=== PATIENT | female | born 2000 | race American Indian/Alaskan Native ===

== ENCOUNTER 2018-02-15 13:04 | Inpatient (IN) | payer OTHER ==
[2018-02-15 13:54] LABS: Basophils % (Auto) 0.4 % (0.0-1.8); Eosinophils % (Auto) 0.7 % (0.0-4.3); Hematocrit 39.7 % (30.3-42.9); Hemoglobin 13.2 gm/dl (10.1-14.3); Lymphocytes # (Auto) 1.1 K/mm3 (1.2-5.4); Lymphocytes % (Auto) 24.9 % (13.4-35.0); Mean Corpuscular HGB Conc 33 % (30-34); Mean Corpuscular Hemoglobin 30 pg (28-32); Mean Corpuscular Volume 91 fl (79-97); Monocytes # (Auto) 0.4 K/mm3 (0.0-0.8); Monocytes % (Auto) 8.4 % (0.0-7.3); Platelet Count 217 K/mm3 (140-440); Red Blood Count 4.37 M/mm3 (3.65-5.03); Red Cell Distribution Width 12.1 % (13.2-15.2)
[2018-02-15 14:09] LABS: INR 1.07 (0.87-1.13)
[2018-02-15 14:10] LABS: Partial Thromboplastin Time 27.2 Sec. (24.2-36.6); Thrombin Time 15.4 Sec. (15.1-19.6)
[2018-02-15 14:19] LABS: BUN/Creatinine Ratio 20; Blood Urea Nitrogen 14 mg/dL (7-17); Calcium 9.7 mg/dL (8.4-10.2); Hemolysis Index 40
--- NOTE | 2018-02-15 15:10 | Cat Scan Report ---
CT HEAD WITHOUT CONTRAST: HISTORY: Syncope, bilateral weakness left greater than right. TECHNIQUE: Sequential 2.5mm CT images. COMPARISON: none. FINDINGS: Cerebral Parenchyma: Within normal limits. Cerebellum: Within normal limits. Brainstem: Within normal limits. Ventricles: Normal. Sella: Normal. Extra-axial spaces: Normal. Basal Cisterns: Normal. Intracranial Hemorrhage: None. Midline Shift: None. Calvarium: Normal. Sinuses: Normal. Mastoid Air Cells: Normal. Visualized Orbits: Normal. IMPRESSION: Cranial CT scan within normal limits.
[2018-02-15 16:24] LABS: Creatine Kinase MB < 1.0 ng/mL (0.0-4.0)
--- NOTE | 2018-02-15 17:18 | Emergency Department Report ---
ED Syncope HPI - General Chief Complaint: Syncope Stated Complaint: SYNCOPY Time Seen by Provider: 02/15/18 13:29 Source: patient, family Exam Limitations: physical impairment - History of Present Illness Initial Comments: 17 year old female with a past medical history of neuronal migration disorder presents to the hospital with syncopal episode, sore throat, difficulty speaking , and left-sided weakness. The last several days patient has had a sore throat , cough, and congestion. She's been taking [id number] medication including TheraFlu and [facility] OTC. This morning at about 6:54 AM prior to going to school patient had a very low volume to her voice. About 11:50 AM mom received a call that patient passed out walking and then slid down the wall. To their knowledge no seizure activity was noticed. Upon arrival patient speaks intermittently but extremely low volume and not fluent. She has bilateral we can shoemaking cutter but greater on the left and left leg weakness as well. She complains of throat pain. - Related Data Allergies/Adverse Reactions: Allergies No Known Allergies Allergy (Unverified 02/15/18 13:44) ED Review of Systems ROS: Stated complaint: SYNCOPY Other details as noted in HPI Comment: All other systems reviewed and negative ED Past Medical Hx - Past Medical History Previous Medical History?: Yes Additional medical history: Neuronal Migration Disorder - Surgical History Past Surgical History?: No - Social History Smoking Status: Never Smoker Substance Use Type: None ED Physical Exam - General Limitations: Altered Mental Status - Other Other exam information: General: No limitations, patient is alert in no acute distress Head exam: Atraumatic, normocephalic Eyes exam: Normal appearance, pupils equal reactive to light, extraocular movements intact ENT: Moist mucous membrane, patient unable to fully open her jaw and therefore unable to fully visualize the posterior pharynx. Uvula appears normal. Neck exam: Normal inspection, full range of motion, no meningismus nontender Respiratory exam: Clear to auscultation bilateral, no wheezes, rales, crackles Cardiovascular: Normal rate and rhythm, normal heart sounds Abdomen: Soft, nondistended, and nontender, with normal bowel sounds, no rebound, or guarding Extremity: Full range of motion normal inspection no deformity Back: Normal Inspection, full range of motion, no tenderness Neurologic: Alert, oriented x3, no facial droop. see NIHSS Psychiatric: normal affect, normal mood Skin: Warm, dry, intact ED Course Vital Signs 02/15/18 02/15/18 02/15/18 13:38 17:40 18:00 Temperature 97.8 F 97.9 F 98.9 F Pulse Rate 67 75 82 Respiratory 16 12 14 Rate Blood Pressure 126/72 Blood Pressure 105/56 109/69 [Right] O2 Sat by Pulse 98 98 98 Oximetry - Reevaluation(s) Reevaluation #1: 02/15/18 19:20 ability to speak mildly improved pt failed swallow screen - Consultations Consultation #1: 02/15/18 19:21 case d/w Dr Castillo with [place] and rec admission here ED Medical Decision Making - Lab Data Result diagrams: 02/15/18 13:37 02/15/18 13:37 Lab Results 02/15/18 02/15/18 02/15/18 Range/Units 13:37 13:37 13:37 WBC 4.3 L (4.5-11.0) K/mm3 RBC 4.37 (3.65-5.03) M/mm3 Hgb 13.2 (10.1-14.3) gm/dl Hct 39.7 (30.3-42.9) % MCV 91 (79-97) fl MCH 30 (28-32) pg MCHC 33 (30-34) % RDW 12.1 L (13.2-15.2) % Plt Count 217 (140-440) K/mm3 Lymph % (Auto) 24.9 (13.4-35.0) % Clay % (Auto) 8.4 H (0.0-7.3) % Eos % (Auto) 0.7 (0.0-4.3) % Baso % (Auto) 0.4 (0.0-1.8) % Lymph # 1.1 L (1.2-5.4) K/mm3 Clay # 0.4 (0.0-0.8) K/mm3 Eos # 0.0 (0.0-0.4) K/mm3 Baso # 0.0 (0.0-0.1) K/mm3 Seg Neutrophils % 65.6 (40.0-70.0) % Seg Neutrophils # 2.8 (1.8-7.7) K/mm3 PT (12.2-14.9) Sec. INR (0.87-1.13) APTT (24.2-36.6) Sec. Thrombin Time (15.1-19.6) Sec. Sodium 140 (137-145) mmol/L Potassium 4.2 (3.6-5.0) mmol/L Chloride 104.3 (98-107) mmol/L Carbon Dioxide 22 (22-30) mmol/L Anion Gap 18 mmol/L BUN 14 (7-17) mg/dL Creatinine 0.7 (0.7-1.2) mg/dL Estimated GFR > 60 ml/min BUN/Creatinine Ratio 20 % Glucose 77 (65-100) mg/dL Calcium 9.7 (8.4-10.2) mg/dL Magnesium 1.80 (1.7-2.3) mg/dL Total Creatine Kinase (30-135) units/L CK-MB (CK-2) (0.0-4.0) ng/mL CK-MB (CK-2) Rel Index (0-4) Troponin T (0.00-0.029) ng/mL HCG, Qual Negative (Negative) 02/15/18 02/15/18 Range/Units 13:37 15:49 WBC (4.5-11.0) K/mm3 RBC (3.65-5.03) M/mm3 Hgb (10.1-14.3) gm/dl Hct (30.3-42.9) % MCV (79-97) fl MCH (28-32) pg MCHC (30-34) % RDW (13.2-15.2) % Plt Count (140-440) K/mm3 Lymph % (Auto) (13.4-35.0) % Clay % (Auto) (0.0-7.3) % Eos % (Auto) (0.0-4.3) % Baso % (Auto) (0.0-1.8) % Lymph # (1.2-5.4) K/mm3 Clay # (0.0-0.8) K/mm3 Eos # (0.0-0.4) K/mm3 Baso # (0.0-0.1) K/mm3 Seg Neutrophils % (40.0-70.0) % Seg Neutrophils # (1.8-7.7) K/mm3 PT 14.4 (12.2-14.9) Sec. INR 1.07 (0.87-1.13) APTT 27.2 (24.2-36.6) Sec. Thrombin Time 15.4 (15.1-19.6) Sec. Sodium (137-145) mmol/L Potassium (3.6-5.0) mmol/L Chloride (98-107) mmol/L Carbon Dioxide (22-30) mmol/L Anion Gap mmol/L BUN (7-17) mg/dL Creatinine (0.7-1.2) mg/dL Estimated GFR ml/min BUN/Creatinine Ratio % Glucose (65-100) mg/dL Calcium (8.4-10.2) mg/dL Magnesium (1.7-2.3) mg/dL Total Creatine Kinase 68 (30-135) units/L CK-MB (CK-2) < 1.0 (0.0-4.0) ng/mL CK-MB (CK-2) Rel Index 1.4 (0-4) Troponin T < 0.010 (0.00-0.029) ng/mL HCG, Qual (Negative) - EKG Data -: EKG Interpreted by Ny EKG shows normal: sinus rhythm, axis (qrs 82), QRS complexes (ibarra 59), ST-T waves (ant t wave inv) Rate: normal (96) - EKG Data When compared to previous EKG there are: previous EKG unavailable - Radiology Data Radiology results: report reviewed CT HEAD WITHOUT CONTRAST: HISTORY: Syncope, bilateral weakness left greater than right. TECHNIQUE: Sequential 2.5mm CT images. COMPARISON: none. FINDINGS: Cerebral Parenchyma: Within normal limits. Cerebellum: Within normal limits. Brainstem: Within normal limits. Ventricles: Normal. Sella: Normal. Extra-axial spaces: Normal. Basal Cisterns: Normal. Intracranial Hemorrhage: None. Midline Shift: None. Calvarium: Normal. Sinuses: Normal. Mastoid Air Cells: Normal. Visualized Orbits: Normal. IMPRESSION: Cranial CT scan within normal limits. FINAL REPORT PROCEDURE: CT ANGIO HEAD TECHNIQUE: Computerized tomographic angiography of the head was performed after the IV injection of iodinated nonionic contrast including image processing. The image data was postprocessed using 2-dimensional multiplanar reformatted (MPR) and 3-dimensional (MIP and/or volume rendered) techniques. HISTORY: left sided weakness, speech difficulty COMPARISON: No prior studies are available for comparison. FINDINGS: Intracranial vessels: Carotid siphon: Normal. Anterior cerebral: Normal. Middle cerebral: Normal. Posterior cerebral:Normal. Vertebral arteries including basilar: Normal. Aneurysms: None. Dural sinuses: Normal. IMPRESSION: No occlusion or focal stenosis FINAL REPORT EXAM: CT ANGIO NECK HISTORY: left sided weakness, difficulty speaking Helical CT was performed of the neck after administration of intravenous iodinated contrast for CT angiography. Images are reconstructed in the sagittal and coronal planes. 150 cc of Omnipaque 350 were used for the IV contrast agent PRIORS: None. FINDINGS: There is a normal 3 vessel origin from the aortic arch. The upper mediastinum appears normal. The lung apices are clear. The jugular veins are patent. Right: The common carotid artery and carotid bulb appear normal. The internal carotid artery is without stenosis. The external carotid artery and branches are within normal limits. The vertebral artery is patent and appears normal. Left: The common carotid artery and carotid bulb appear normal. The internal carotid artery is without stenosis. The external carotid artery and branches are within normal limits. The vertebral artery is patent and appears normal. Soft tissues: The pharynx and para-pharyngeal soft tissues appear normal. The parotid and submandibular glands appear normal. The thyroid appears normal. No abnormal soft tissue masses are demonstrated. Bones: The bones appear normal. IMPRESSION: Normal CT angiogram of the neck - Medical Decision Making sore throat no fever or leukocytosis Unable to visualize posterior pharynx on exam CT angiogram neck did not reveal soft tissue abnormalities Neurologic deficits CT head and CT and head and neck unremarkable Questionable neuromuscular disorder Patient would need admission for MRI and neurology consult rectal asa ordered due to failed swallow screen - Differential Diagnosis neuromotor disorder, cva, MS, conversion, Critical Care Time: No Critical care attestation.: If time is entered above; I have spent that time in minutes in the direct care of this critically ill patient, excluding procedure time. ED Disposition Clinical Impression: Difficulty speaking, Left-sided weakness, Syncope, Neuronal migration disorder , Sore throat Disposition: OP ADMIT IP TO THIS HOSP Is pt being admited?: Yes Condition: Stable Time of Disposition: 19:29 (Dr Lyle/hosp) - Assessment Assessment Interval: Baseline - Level of Consciousness 1a. Level of Consciousness: alert/keenly responsive - LOC Questions 1b. LOC Questions: answers both correctly - LOC Command 1c. LOC Commands: performs tasks correctly - Best Gaze 2. Best Gaze: normal - Visual 3. Visual: no visual loss - Facial Palsy 4. Facial Palsy: normal symmetrical movement - Motor Arm 5b. Motor Arm Right: no drift 5a. Motor Arm Left: drift - Motor Leg 6a. Motor Leg Left: no gravity effort 6b. Motor Leg Right: no drift - Limb Ataxia 7. Limb Ataxia: present 1 limb - Sensory 8. Sensory: mild/moderate sensory loss (left) - Best Language 9. Best Language: no aphasia - Dysarthria 10. Dysarthria: mild/moderate dysarthria (low speach) - Extinction and Inattention 11. Extinction/Inattention: no abnormality - Scoring Total Score: 7 Stroke Severity: Moderate Stroke
--- NOTE | 2018-02-15 18:34 | Cat Scan Report ---
FINAL REPORT EXAM: CT ANGIO NECK HISTORY: left sided weakness, difficulty speaking Helical CT was performed of the neck after administration of intravenous iodinated contrast for CT angiography. Images are reconstructed in the sagittal and coronal planes. 150 cc of Omnipaque 350 were used for the IV contrast agent PRIORS: None. FINDINGS: There is a normal 3 vessel origin from the aortic arch. The upper mediastinum appears normal. The lung apices are clear. The jugular veins are patent. Right: The common carotid artery and carotid bulb appear normal. The internal carotid artery is without stenosis. The external carotid artery and branches are within normal limits. The vertebral artery is patent and appears normal. Left: The common carotid artery and carotid bulb appear normal. The internal carotid artery is without stenosis. The external carotid artery and branches are within normal limits. The vertebral artery is patent and appears normal. Soft tissues: The pharynx and para-pharyngeal soft tissues appear normal. The parotid and submandibular glands appear normal. The thyroid appears normal. No abnormal soft tissue masses are demonstrated. Bones: The bones appear normal. IMPRESSION: Normal CT angiogram of the neck
--- NOTE | 2018-02-15 19:03 | Cat Scan Report ---
FINAL REPORT PROCEDURE: CT ANGIO HEAD TECHNIQUE: Computerized tomographic angiography of the head was performed after the IV injection of iodinated nonionic contrast including image processing. The image data was postprocessed using 2-dimensional multiplanar reformatted (MPR) and 3-dimensional (MIP and/or volume rendered) techniques. HISTORY: left sided weakness, speech difficulty COMPARISON: No prior studies are available for comparison. FINDINGS: Intracranial vessels: Carotid siphon: Normal. Anterior cerebral: Normal. Middle cerebral: Normal. Posterior cerebral:Normal. Vertebral arteries including basilar: Normal. Aneurysms: None. Dural sinuses: Normal. IMPRESSION: No occlusion or focal stenosis
[2018-02-15] MEDS ORDERED: ASPIRIN PR ONE (19:22)
[2018-02-15] MEDS ORDERED: BABY ASPIRIN PO ONE (19:58)
[2018-02-15] MEDS ORDERED: MORPHINE IV PRN (22:59)
[2018-02-15] MEDS ORDERED: TYLENOL PO PRN (22:59)
[2018-02-15] MEDS ORDERED: ZOFRAN IV PRN (22:59)
[2018-02-15] MEDS ORDERED: SODIUM CHLORIDE FLUSH SYRINGE 10 ML IV PRN ×2 (22:59→23:03)
[2018-02-15] MEDS ORDERED: PERCOCET 5/325 PO PRN (22:59)
--- NOTE | 2018-02-15 22:59 | History and Physical Report ---
History of Present Illness Date of examination: 02/15/18 Date of admission: 02/15/2018 Chief complaint: Chief complaint Syncope Left-sided weakness since 11:30 AM History of present illness: History of Present Illness: 17 year old female with a past medical history of neuronal migration disorder presents to the hospital with syncopal episode, sore throat, difficulty speaking , and left-sided weakness. The last several days patient has had a sore throat , cough, and congestion. She's been taking [id number] medication including TheraFlu and [facility] OTC. This morning at about 6:54 AM prior to going to school patient had a very low volume to her voice. About 11:50 AM mom received a call that patient passed out walking and then slid down the wall. To their knowledge no seizure activity was noticed. Upon arrival patient speaks intermittently but extremely low volume and not fluent. She has weakness in the left upper extremity and left lower extremity. Past Medical History Previous Medical History?: Yes Additional medical history: Neuronal Migration Disorder Surgical History Past Surgical History?: No Social History Smoking Status: Never Smoker Substance Use Type: None Family history Htn Review of Systems ROS: Stated complaint: SYNCOPY Left-sided weakness since 11:30 AM Other details as noted in HPI Comment: All other systems reviewed and negative Medications and Allergies Allergies Allergy/AdvReac Type Severity Reaction Status Date / Time No Known Allergies Allergy Unverified 02/15/18 13:44 Home Medications Medication Instructions Recorded Confirmed Last Taken Type No Known Home Medications [No 02/15/18 02/15/18 Unknown History Reported Home Medications] Exam - Constitutional Vitals: Temp Pulse Resp BP Pulse Ox 98.7 F 86 15 107/65 98 02/15/18 19:15 02/15/18 21:00 02/15/18 21:00 02/15/18 21:00 02/15/18 21:00 General appearance: Present: no acute distress, well-nourished - EENT Eyes: Present: PERRL ENT: hearing intact, clear oral mucosa - Neck Neck: Present: supple, normal ROM - Respiratory Respiratory effort: normal Respiratory: bilateral: CTA - Cardiovascular Heart rate: 76 Rhythm: regular Heart Sounds: Present: S1 & S2. Absent: rub, click - Extremities Extremities: no ischemia, pulses intact, pulses symmetrical, No edema Peripheral Pulses: within normal limits - Abdominal General gastrointestinal: Present: soft, non-tender, non-distended, normal bowel sounds Female genitourinary: Present: normal - Rectal Rectal Exam: deferred - Integumentary Integumentary: Present: clear, warm, dry - Musculoskeletal Musculoskeletal: left sided weakness - Psychiatric Psychiatric: appropriate mood/affect, intact judgment & insight, cooperative - Neurologic Neurologic: CNII-XII intact, other (no cranial nerve involvement left-sided weakness) Results - Labs CBC & Chem 7: 02/15/18 13:37 02/15/18 13:37 Labs: Laboratory Last Values WBC 4.3 K/mm3 (4.5-11.0) L 02/15/18 13:37 RBC 4.37 M/mm3 (3.65-5.03) 02/15/18 13:37 Hgb 13.2 gm/dl (10.1-14.3) 02/15/18 13:37 Hct 39.7 % (30.3-42.9) 02/15/18 13:37 MCV 91 fl (79-97) 02/15/18 13:37 MCH 30 pg (28-32) 02/15/18 13:37 MCHC 33 % (30-34) 02/15/18 13:37 RDW 12.1 % (13.2-15.2) L 02/15/18 13:37 Plt Count 217 K/mm3 (140-440) 02/15/18 13:37 Lymph % (Auto) 24.9 % (13.4-35.0) 02/15/18 13:37 [place] % (Auto) 8.4 % (0.0-7.3) H 02/15/18 13:37 Eos % (Auto) 0.7 % (0.0-4.3) 02/15/18 13:37 Baso % (Auto) 0.4 % (0.0-1.8) 02/15/18 13:37 Lymph # 1.1 K/mm3 (1.2-5.4) L 02/15/18 13:37 [place] # 0.4 K/mm3 (0.0-0.8) 02/15/18 13:37 Eos # 0.0 K/mm3 (0.0-0.4) 02/15/18 13:37 Baso # 0.0 K/mm3 (0.0-0.1) 02/15/18 13:37 Seg Neutrophils % 65.6 % (40.0-70.0) 02/15/18 13:37 Seg Neutrophils # 2.8 K/mm3 (1.8-7.7) 02/15/18 13:37 PT 14.4 Sec. (12.2-14.9) 02/15/18 13:37 INR 1.07 (0.87-1.13) 02/15/18 13:37 APTT 27.2 Sec. (24.2-36.6) 02/15/18 13:37 Thrombin Time 15.4 Sec. (15.1-19.6) 02/15/18 13:37 Sodium 140 mmol/L (137-145) 02/15/18 13:37 Potassium 4.2 mmol/L (3.6-5.0) 02/15/18 13:37 Chloride 104.3 mmol/L (98-107) 02/15/18 13:37 Carbon Dioxide 22 mmol/L (22-30) 02/15/18 13:37 Anion Gap 18 mmol/L 02/15/18 13:37 BUN 14 mg/dL (7-17) 02/15/18 13:37 Creatinine 0.7 mg/dL (0.7-1.2) 02/15/18 13:37 Estimated GFR > 60 ml/min 02/15/18 13:37 BUN/Creatinine Ratio 20 % 02/15/18 13:37 Glucose 77 mg/dL (65-100) 02/15/18 13:37 Calcium 9.7 mg/dL (8.4-10.2) 02/15/18 13:37 Magnesium 1.80 mg/dL (1.7-2.3) 02/15/18 13:37 Total Creatine Kinase 68 units/L (30-135) 02/15/18 15:49 CK-MB (CK-2) < 1.0 ng/mL (0.0-4.0) 02/15/18 15:49 CK-MB (CK-2) Rel Index 1.4 (0-4) 02/15/18 15:49 Troponin T < 0.010 ng/mL (0.00-0.029) 02/15/18 15:49 HCG, Qual Negative (Negative) 02/15/18 13:37 - Imaging and Cardiology Imaging and Cardiology: CT angiogram of the neck and head normal CT of the head no acute findings Assessment and Plan Advance Directives: Yes (full code) VTE prophylaxis?: Chemical Plan of care discussed with patient/family: Yes - Patient Problems (1) Left-sided weakness Current Visit: Yes Status: Acute Plan to address problem: At this point I'm more inferior conversion disorder. Patient able to move her foot Also talking normally Her age is against acute CVA MRI/MRA and carotid to be scan ordered Neurology consult ordered (2) Neuronal migration disorder Current Visit: Yes Status: Acute (3) Syncope Current Visit: Yes Status: Acute Qualifiers: Syncope type: unspecified Qualified Code(s): R55 - Syncope and collapse Plan to address problem: Syncope workup Carotid duplex scan ordered (4) DVT prophylaxis Current Visit: Yes Status: Acute Plan to address problem: On Lovenox
[2018-02-15] MEDS ORDERED: NACL 0.9% 1000 ML 1,000 ML IV SCH (23:00)
[2018-02-15 23:39] LABS: Amphetamine Screen,Urine PRESUMPTIVE NEGATIVE; Benzodiazepines Screen,Urine PRESUMPTIVE NEGATIVE; Cannabinoid Screen,Urine PRESUMPTIVE NEGATIVE; Cocaine Screen,Urine PRESUMPTIVE NEGATIVE; Methadone Screen,Urine PRESUMPTIVE NEGATIVE; Opiate Screen,Urine PRESUMPTIVE NEGATIVE
[2018-02-16 06:51] LABS: Basophils % (Auto) 0.6 % (0.0-1.8); Eosinophils # (Auto) 0.1 K/mm3 (0.0-0.4); Eosinophils % (Auto) 2.2 % (0.0-4.3); Hematocrit 38.4 % (30.3-42.9); Hemoglobin 12.7 gm/dl (10.1-14.3); Lymphocytes # (Auto) 1.5 K/mm3 (1.2-5.4); Lymphocytes % (Auto) 42.9 % (13.4-35.0); Mean Corpuscular HGB Conc 33 % (30-34); Mean Corpuscular Hemoglobin 30 pg (28-32); Mean Corpuscular Volume 90 fl (79-97); Monocytes # (Auto) 0.3 K/mm3 (0.0-0.8); Monocytes % (Auto) 9.2 % (0.0-7.3); Platelet Count 216 K/mm3 (140-440); Red Blood Count 4.25 M/mm3 (3.65-5.03)
[2018-02-16 07:08] LABS: Albumin 4.6 g/dL (3.9-5); BUN/Creatinine Ratio 16; Blood Urea Nitrogen 11 mg/dL (7-17); Calcium 9.1 mg/dL (8.4-10.2); Chol/HDL Ratio 4.54 %; HDL Cholesterol 37 mg/dL (40-59); Hemolysis Index 2; LDL Cholesterol,Direct 130 mg/dL (50-130)
[2018-02-16 07:14] LABS: Alanine Aminotransferase < 5 units/L (7-56)
[2018-02-16] MEDS: PEPCID PO SCH ×2 (11:02→22:57)
[2018-02-16] MEDS: LOVENOX SUB-Q SCH (11:02)
[2018-02-16] MEDS: SODIUM CHLORIDE FLUSH SYRINGE 10 ML IV SCH ×2 (11:03→22:59)
[2018-02-16] MEDS ORDERED: AFLURIA QUAD 2018-2019 SYRINGE IM ONE (12:00)
--- NOTE | 2018-02-16 13:44 | Magnetic Resonance Report ---
MRA HEAD WITHOUT CONTRAST HISTORY: Stroke. [id number] imaging with MIP reformations of the [place] of [place] is submitted. The arteries appear widely patent and free of hemodynamically significant stenosis, aneurysm or dissection. IMPRESSION: Unremarkable MRA head.
--- NOTE | 2018-02-16 13:55 | Magnetic Resonance Report ---
MRI OF THE BRAIN WITHOUT CONTRAST: HISTORY: Stroke PROCEDURE: Multiplanar, multisequence MR imaging of the brain without IV contrast was performed. FINDINGS: Compared to the CT head dated 02/15/18. MRI demonstrates no evidence for acute ischemia, hemorrhage or mass. No extra-axial fluid collection. The brain parenchymal signal intensity is within normal limits on all sequences. 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 There is also suggestion of a focal area of polymicrogyria in the right parieto-occipital region but this is not certain. The midline structures are central. The basal cisterns are patent. Normal ventricular size. The orbital cavities and sella turcica demonstrate no abnormality. The visualized paranasal sinuses and mastoid air cells are well aerated. IMPRESSION: No evidence for acute or subacute stroke. No hemorrhage. 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
--- NOTE | 2018-02-16 16:09 | Progress Note ---
Assessment and Plan - Patient Problems (1) Left-sided weakness Current Visit: Yes Status: Acute Plan to address problem: At this point I'm more in favor of conversion disorder. Patient able to move her foot Also talking normally Her age is against acute CVA MRI/MRA and carotid Duplex normal Neurology consult ordered ordered (2) Neuronal migration disorder Current Visit: Yes Status: Acute (3) Syncope Current Visit: Yes Status: Acute Qualifiers: Syncope type: unspecified Qualified Code(s): R55 - Syncope and collapse Plan to address problem: Syncope workup Carotid duplex scan ordered (4) DVT prophylaxis Current Visit: Yes Status: Acute Plan to address problem: On Lovenox Subjective Date of service: 02/16/18 Principal diagnosis: L side weakness Interval history: Doing better Objective - Constitutional Vitals: Vital Signs - 12hr 02/16/18 06:10 Temperature 98.7 F Pulse Rate 79 Respiratory 14 Rate Blood Pressure 103/47 O2 Sat by Pulse 96 Oximetry General appearance: Present: no acute distress, well-nourished - EENT Eyes: PERRL, EOM intact ENT: hearing intact, clear oral mucosa Ears: bilateral: normal - Neck Neck: supple, normal ROM - Respiratory Respiratory effort: normal Respiratory: bilateral: CTA - Breasts Breasts: normal - Cardiovascular Rhythm: regular Heart Sounds: Present: S1 & S2. Absent: gallop, rub Extremities: no ischemia, pulses intact, No edema, normal color, Full ROM - Gastrointestinal General gastrointestinal: Present: soft, non-tender, non-distended, normal bowel sounds - Genitourinary Female genitourinary: normal - Integumentary Integumentary: clear, warm, dry - Musculoskeletal Musculoskeletal: left sided weakness - Neurologic Neurologic: moves all extremities - Psychiatric Psychiatric: memory intact, appropriate mood/affect, intact judgment & insight - Allied health notes Allied health notes reviewed: nursing, case management - Labs CBC & Chem 7: 02/16/18 06:13 02/16/18 06:13 Labs: Abnormal lab results 02/16/18 02/16/18 Range/Units 06:13 06:13 WBC 3.4 L (4.5-11.0) K/mm3 RDW 12.0 L (13.2-15.2) % Lymph % (Auto) 42.9 H (13.4-35.0) % [place] % (Auto) 9.2 H (0.0-7.3) % Seg Neutrophils # 1.5 L (1.8-7.7) K/mm3 ALT < 5 L (7-56) units/L HDL Cholesterol 37 L (40-59) mg/dL
[2018-02-17] MEDS: PEPCID PO SCH (11:36)
[2018-02-17] MEDS: LOVENOX SUB-Q SCH (11:38)
[2018-02-17] MEDS: SODIUM CHLORIDE FLUSH SYRINGE 10 ML IV SCH (11:41)
[2018-02-17 13:46] VITALS: BP 109/57
--- NOTE | 2018-02-17 14:00 | XRay Report ---
LEFT KNEE RADIOGRAPHS INDICATION: Knee pain. COMPARISON: None similar. FINDINGS: AP, lateral and oblique left knee radiographs demonstrate intact bony articulation and appearance. Normal soft tissues without evidence of suprapatellar effusion. CONCLUSION: Normal left knee radiographs. Thank you for the opportunity to participate in this patient's care.
--- NOTE | 2018-02-17 15:29 | Discharge Summary ---
Providers - Providers Date of Admission: 02/15/18 22:59 Date of discharge: 02/17/18 Attending physician: YOLIE BARKER 02/15/18 22:59 Consult to Physician [CONS] Routine Comment: Consulting Provider: MIKAYLA CARDONA Physician Instructions: Reason For Exam: left-sided weakness 02/15/18 23:03 Occupational Therapy Evaluate and Treat [CONS] Routine Comment: Reason For Exam: Neuro deficits Physical Therapy Evaluation and Treat [CONS] Routine Comment: Reason For Exam: Neuro deficits 02/16/18 16:48 Consult to Mental Health [CONS] Routine Reason For Exam: ??Conversion disorder Place consult to:: JESSICA Notified:: JESSICA Phone number called:: [phone] Was contact made?: Yes If yes, spoke with:: JESSICA Time called:: 17:29 Primary care physician: BASKET TURNER Hospitalization Condition: Fair Disposition: DC-01 TO HOME OR SELFCARE Core Measure Documentation - Palliative Care Palliative Care/ Comfort Measures: Not Applicable - Core Measures Any of the following diagnoses?: none Exam - Constitutional Vitals: Temp Pulse Resp BP Pulse Ox 98.2 F 69 12 109/57 99 02/17/18 13:10 02/17/18 13:10 02/17/18 13:10 02/17/18 13:10 02/17/18 13:10 Plan Activity: no driving until cleared by PCP Diet: low fat, low cholesterol Special Instructions: physical therapy, home health RN Additional Instructions: 1.Follow up [facility] PCP at [place] in 3-5 days. 2.Follow up with Neurologist at [place] in 3-5 days. 3.No driving until cleared by PCP or Neurologist Follow up with: PRIMARY CARE, [Primary Care Provider] - 7 Days Prescriptions: Aspirin EC [Aspirin Enteric Coated TAB] 81 mg PO QDAY #30 tablet AtorvaSTATin [Lipitor] 40 mg PO QHS #30 tablet
[2018-02-17] MEDS ORDERED: BABY ASPIRIN PO STA (15:43)
[2018-02-17] MEDS ORDERED: AFLURIA QUAD 2018-2019 SYRINGE IM ONE (15:45)
--- NOTE | 2018-02-17 16:43 | Consultation ---
REASON FOR CONSULTATION: Weakness in the left side. HISTORY OF PRESENT ILLNESS: Given by the patient as well as the mother. The patient is a 17-year-old black female with left-sided weakness. The history revealed that she woke up yesterday feeling fine and she just remembers preparing for school, ate breakfast, went to the bus and she went to the school. She goes to [employer] and she said that she passed out while she was helping her makeup on. She cannot remember anything; however, when before she passed out, she noted that she was feeling nauseous and probably vomiting. She had not anything and they brought her here. A more detailed history by the mother revealed that she has the symptoms that the daughter, said, but when the paramedics came, she was noted to be not moving her left arm and left leg. She was then immediately brought in here and she was worked up, and slowly she was recovering her strength on the left side at about 10:00 p.m. last night. She seems to be moving more significantly. History by Dr. Lyle revealed that the patient has sore throat, difficulty speaking, and left-sided weakness. Apparently, she has been having the symptoms of sore throat, cough, and congestion several days prior to the Emergency Room visit. She was taking [id number] medication including Theraflu. Then, when she woke up this morning; she had a low volume, yesterday morning, she had a low volume voice. Around almost noon time, she had passed out. No description of any seizure activity, but boisterous flow volume and not very fluent. She was very weak on the left side, left upper and left lower extremity and the mother did get a report of the left arm. There was no movement in the left arm and left leg. The mother received most of the information merchandising manager. A second hand from the medic personnel. PAST MEDICAL HISTORY: The patient was born with a neuronal migration disorder. She was seen by pediatric neurologist at [facility]. She apparently had inability to feed at that time salivating and that she grew up, she got better, but she was left with slight weakness in the left, but she as mentioned, she has improved. Potassium improved. She was diagnosed with migraine before. She was given some medication for this, but they cannot remember. PAST SURGICAL HISTORY: None. SOCIAL HISTORY: The patient is going to [employer]. She lives with her family. She does not smoke, no alcohol, no drugs. ALLERGIES: None known. MEDICATIONS: None. She used to take home medication for migraine, they had not the name. PHYSICAL EXAMINATION: GENERAL: Revealed a well-developed, well-nourished, very pleasant girl who is in no acute distress. VITAL SIGNS: Her blood pressure was 107/65, pulse rate is 86, respirations 16, temperature 98.7, oximetry 98%. HEAD, EYES, EARS, NOSE, MOUTH AND THROAT: Unremarkable. No intracranial or intraorbital bruit. NECK: Supple. No carotid bruit. HEART: Regular rate and rhythm. LUNGS: Sounds clear. ABDOMEN: Soft. EXTREMITIES: Appeared externally normal. There may appeared to be slight swelling of the left knee and left lower leg. The mother feels that her daughter fell on her left leg, that is why, she was hurting. During my examination, she was hurting on this left knee. NEUROLOGIC: Revealed the patient is awake, alert. Mental status shows normal speech, which is slurred and sometimes hesitant. This patient had a problem with his speech before, but this is normal. Cranial nerve examination showed a very subtle left-sided lower facial weakness, but I saw her old picture and this is present already. 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 Motor examination: She has 5/5 strength in the upper extremity, but the left side showed a slight to pressure. There is subtle tremor. The left lower extremity difficult to examine because she has pain in the left knee. I have to help her bend her left knee and when she did it, she was able to raise this up, but still she would not move it because of pain rather than weakness. Sensory testing, no complaint. Coordination intact, but had difficulty with the left leg because of the pain in her knee. A little bit of mild tremor with [id number]. Reflexes symmetrical on both sides. Definitely, no Babinski. The patient can walk, but she has slight difficulty because of the pain in the left knee. This patient has basically normal examination and I doubt that she had a stroke. I doubt any organic lesion in the right hemisphere. What I am suspecting is whether she had some type of a complicated migraine that caused all of this. It did not appear to be a seizure. It is tempting to know that she has a supratentorial or psychogenic spell, but it appeared that this patient has a stable psychological status. This patient was seen by the telemedicine on the basis of possible stroke, but this was not done because the symptoms resolved. The patient was advised a stroke workup. RECOMMENDATION AND PLAN: I will review the test that has been done. MRI/MRA, carotid ultrasound, 2D echo, I believe she might need to have a transesophageal echo to look at the back part of the heart per my look at any vegetation or defect. Consider baby aspirin or even medication for migraine. At this time, no confirmatory diagnosis yet. This was fully explained to the mother. Sixty minutes involving the history and physical examination and more than 30% in the evaluation, coordination of care, and counseling. JOB# [id number] QUETA/MICHELLE
[2018-02-18] MEDS ORDERED: HALFPRIN EC PO SCH (10:00)
--- NOTE | 2018-02-18 13:00 | Physician Progress Note ---
NEUROLOGY PROGRESS NOTE SUBJECTIVE: This patient was admitted because of left-sided weakness, slurred or difficulty speech, but she got better and improved. Now she is able to move her left leg. Her speech also is slowly getting better. You can understand it better now. The patient does not have any more sore throat. She also had a syncopal episode. OBJECTIVE: Examination is basically the same but she does have very subtle left-sided weakness, but improved from yesterday. Even her speech has improved. You can understand it better now. ASSESSMENT: Diagnosis is not confirmed, but I suspect the possibility of a transient ischemic episode of unknown nature. 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 PLAN: Because of the uncertainty of the diagnosis and undefined history of neuronal migration disorder, I believe it is important that she should follow up with a neurologist at least 2 weeks from this discharge and with her primary care doctor. At least give baby aspirin of 81 mg per day. This was fully discussed with Dr. Vahid Pena and discussed also with the father who understood this very well. JOB# [id number] QUETA/MICHELLE
== END 2018-02-17 17:05 | disposition home health service (06) | DRG 69 ==
LOC: ED 13:04 → 3A 22:59
PROVIDERS: ADMIT Internal Medicine; ATTEND Internal Medicine
DX: G45.9 Transient cerebral ischemic attack, unspecified (principal); G81.94 Hemiplegia, unspecified affecting left nondominant side; R29.818 Other symptoms and signs involving the nervous system; R55 Syncope and collapse; Z82.49 Family history of ischemic heart disease and other diseases of the circulatory system
CPT/HCPCS: 36415; 70450; 70496; 70498; 70544; 70551; 80048; 80053; 80061; 80307; 82550; 82553; 83036; 83735; 84484; 84703; 85025; 85610; 85670; 85730; 90686; 93005; 93010; 93880; J1650; Q9967